=== PATIENT | male | born 1965 | race Asian ===

== ENCOUNTER 2016-10-24 07:36 | Emergency (ER) | payer OTHER ==
[~2016-10-24] VITALS: Ht 157.5 cm; Wt 52.3 kg
[~2016-10-24 07:36] MED LIST: CIPRO500 MG PO; FLAGYL500 MG PO; NORCO1 TA2 PO
[2016-10-24 07:39] VITALS: BP 118/78
== END 2016-10-24 08:30 | disposition home or self-care (01) ==
LOC: ED 07:36
DX: M54.5 Low back pain (principal)
CPT/HCPCS: J1885

== ENCOUNTER 2017-04-29 16:44 | Emergency (ER) | payer OTHER ==
[~2017-04-29] VITALS: Ht 162.6 cm; Wt 52.6 kg
[2017-04-29 17:00] VITALS: Ht 162.6 cm; Wt 52.6 kg
[2017-04-29 19:01] VITALS: BP 110/75
== END 2017-04-29 19:01 | disposition home or self-care (01) ==
LOC: ED 16:44
DX: S39.012A Strain of muscle, fascia and tendon of lower back, initial encounter (principal); X50.9XXA Other and unspecified overexertion or strenuous movements or postures, initial encounter; Y93.89 Activity, other specified; Y92.89 Other specified places as the place of occurrence of the external cause; Y99.8 Other external cause status
CPT/HCPCS: J1885; J3010; Q0162